=== PATIENT | male | born 1980 | race Caucasian/White ===

== ENCOUNTER 2024-09-25 20:03 | Emergency (ER) | payer MEDICARE ==
--- NOTE | 2024-09-25 20:42 | ED ---
Seizure HPI - General Chief Complaint: Seizure Stated Complaint: seizure Time Seen by Provider: 09/25/24 20:13 Source: patient, RN notes reviewed Mode of arrival: wheelchair Limitations: no limitations - History of Present Illness Initial Comments: This is a 44-year-old male who presents to the emergency department for a seizure. Patient states that he had a seizure around noon today. He was by himself when this occurred. He had forgotten to take his morning dose of Keppra, but has otherwise been compliant with his medication. He is currently on Keppra 1000 mg twice daily. He has missed doses before and that has not resulted in a seizure. His last seizure was 1.5 months ago, however prior to that he had not had a seizure in a while. Currently follows with neurology out of [place] and states that he just moved to this area. He did hit his head when he fell and also complains of lower back pain. Not taking any blood thinners. States that he had surgery to his lower back in June of last year. MD Complaint: seizure - Related Data Previous Rx's Medication Instructions Recorded Cyclobenzaprine [Flexeril] 10 mg PO TID PRN #30 tab 09/25/24 Ibuprofen [Motrin] 800 mg PO Q8H PRN #30 tab 09/25/24 levETIRAcetam 1,000 mg PO Q12HR #60 tab 09/25/24 Allergies Allergy/AdvReac Type Severity Reaction Status Date / Time No Known Allergies Allergy Verified 09/25/24 20:12 Review of Systems ROS Statement: Those systems with pertinent positive or pertinent negative responses have been documented in the HPI. ROS Other: All systems not noted in ROS Statement are negative. Past Medical History Past Medical History: Hypertension, Seizure Disorder History of Any Multi-Drug Resistant Organisms: None Reported Past Surgical History: Back Surgery Past Psychological History: Anxiety, Depression Smoking Status: Current every day smoker Past Alcohol Use History: None Reported Past Drug Use History: Marijuana General Exam Limitations: no limitations General appearance: alert, in no apparent distress Head exam: Present: atraumatic, normocephalic, normal inspection Eye exam: Present: normal appearance, PERRL, EOMI. Absent: scleral icterus, conjunctival injection, periorbital swelling Respiratory exam: Present: normal lung sounds bilaterally. Absent: respiratory distress, wheezes, rales, rhonchi, stridor Cardiovascular Exam: Present: regular rate, normal rhythm, normal heart sounds. Absent: systolic murmur, diastolic murmur, rubs, gallop, clicks Neurological exam: Present: alert, oriented X3, CN II-XII intact Psychiatric exam: Present: normal affect, normal mood Skin exam: Present: warm, dry, intact, normal color. Absent: rash Course Vital Signs 09/25/24 09/25/24 20:07 22:44 Temperature 97.6 F 98.3 F Pulse Rate 82 72 Respiratory 18 17 Rate Blood Pressure 133/81 130/94 O2 Sat by Pulse 98 96 Oximetry Medical Decision Making - Medical Decision Making This is a 44 year old male who presents to the emergency department for a seizure. Was pt. sent in by a medical professional or institution? @ -No Did you speak to anyone other than the patient for history? @ -No Did you review nursing and triage notes? @ -Yes, and I agree, it is accurate with regards to the patient's symptoms. Were old charts reviewed? @ -No Differential Diagnosis? @ -Differential Seizure: Recurrent seizure disorder, febrile seizure, alcohol withdrawal, stimulants, meningitis, encephalitis, intercranial hemorrhage, intracranial tumor, stroke, eclampsia, thyrotoxicosis, hypocalcemia, hyponatremia, hypernatremia, hypomagnesemia, psychogenic, this is not meant to be an all-inclusive list. EKG interpreted by me (3pts min.)? @ -EKG interpreted by me demonstrating the following: Sinus rhythm. Ventricular rate 71 bpm, ID interval 164 ms, QRS duration 102 ms, QTc 419 ms. X-rays interpreted by me (1pt min.)? @ -Not obtained CT interpreted by me (1pt min.)? @ -Computed tomography scan of the brain and c-spine obtained. My interpretation identifies no evidence of an acute intracranial hemorrhage, skull fracture, or cervical spine fracture. U/S interpreted by me (1pt. min.)? @ -Not obtained What testing was considered but not performed? (CT, X-rays, U/S, labs)? Why? @ -None What meds were considered but not given? Why? @ -None Did you discuss the management of the patient with other professionals? @ -No Did you reconcile home meds? @ -No Was smoking cessation discussed for >3mins.? @ -No Was critical care preformed (if so, how long)? @ -No Were there social determinants of health that impacted care today? How? (Homelessness, low income, unemployed, alcoholism, drug addiction, transportation, low edu. Level, literacy, decrease access to med. care, fdc, rehab)? @ -No Was there de-escalation of care discussed even if they declined? (Discuss DNR or withdrawal of care, Hospice)? @ -No What co-morbidities impacted this encounter? (DM, HTN, Smoking, COPD, CAD, Cancer, CVA, Hep., AIDS, mental health diagnosis, sleep apnea, morbid obesity)? @ -Seizure disorder Was patient admitted / discharged? @ -Discharged. Seizure precautions were initiated on arrival. Lab work demonstrates mildly elevated LFTs and was otherwise relatively unremarkable. However, we have no prior values for comparison. Urinalysis negative for signs of infection. Urine drug screen only positive for marijuana. Alcohol level neg ative. He was given a liter bolus of IV fluids and a loading dose of 1g of Keppra. Given the head injury and back injury with recent back surgery, CT scan of the brain/C-spine and lumbar spine were obtained. CT scan of the brain/C- spine revealed no acute process. CT scan of the lumbar spine revealed a large broad-based L5-S1 disc herniation. Findings reviewed with the patient and discussed that he needs to follow-up with his neurologist regarding these lumbar spine findings, especially given his surgical history. Pain was managed in the emergency department and he was monitored until he was back to baseline. Refill on Keppra provided. He was also given a prescription for ibuprofen and Flexeril for further management of his back pain. Patient discharged home in stable condition. Case discussed with ED attending Dr. Baldwin. Return precautions reviewed in depth, the patient is instructed to return to the emergency department with any new, worsening, or concerning symptoms. Patient verbalized understanding. Undiagnosed new problem with uncertain prognosis? @ -None Drug Therapy requiring intensive monitoring for toxicity (Heparin, Nitro, Insulin, Cardizem)? @ -None Were any procedures done? @ -None Diagnosis/symptom? @ -Generalized seizure, lumbar disc herniation Acute, or Chronic, or Acute on Chronic? @ -Acute Uncomplicated (without systemic symptoms) or Complicated (systemic symptoms)? @ -Uncomplicated Side effects of treatment? @ -None Exacerbation, Progression, or Severe Exacerbation] @ -Not applicable Poses a threat to life or bodily function? @ -Unlikely - Lab Data Result diagrams: 09/25/24 20:42 09/25/24 20:42 Lab Results 09/25/24 09/25/24 09/25/24 Range/Units 20:35 20:42 20:42 WBC 8.6 (3.8-10.6) k/uL RBC 4.43 (4.30-5.90) m/uL Hgb 14.7 (13.0-17.5) gm/dL Hct 44.1 (39.0-53.0) % MCV 99.4 (80.0-100.0) fL MCH 33.2 (25.0-35.0) pg MCHC 33.4 (31.0-37.0) g/dL RDW 11.9 (11.5-15.5) % Plt Count 144 L (150-450) k/uL MPV 8.4 Neutrophils % 64 % Lymphocytes % 23 % Monocytes % 6 % Eosinophils % 5 % Basophils % 1 % Neutrophils # 5.5 (1.3-7.7) k/uL Lymphocytes # 2.0 (1.0-4.8) k/uL Monocytes # 0.5 (0-1.0) k/uL Eosinophils # 0.5 (0-0.7) k/uL Basophils # 0.1 (0-0.2) k/uL Sodium 134 L (137-145) mmol/L Potassium 4.1 (3.5-5.1) mmol/L Chloride 97 L (98-107) mmol/L Carbon Dioxide 29 (22-30) mmol/L Anion Gap 8 mmol/L BUN 12 (9-20) mg/dL Creatinine 0.66 (0.66-1.25) mg/dL Est GFR (CKD-EPI)AfAm >90 (>60 ml/min/1.73 sqM) Est GFR (CKD-EPI)NonAf >90 (>60 ml/min/1.73 sqM) Glucose 75 (74-99) mg/dL Calcium 10.1 (8.4-10.2) mg/dL Magnesium 1.7 (1.6-2.3) mg/dL Total Bilirubin 1.4 H (0.2-1.3) mg/dL AST 69 H (17-59) U/L ALT 52 H (4-49) U/L Alkaline Phosphatase 151 H (38-126) U/L Total Protein 8.5 H (6.3-8.2) g/dL Albumin 5.0 (3.5-5.0) g/dL Urine Color Yellow Urine Appearance Clear (Clear) Urine pH 6.5 (5.0-8.0) Ur Specific [place] 1.018 (1.001-1.035) Urine Protein Negative (Negative) Urine Glucose (UA) Negative (Negative) Urine Ketones Negative (Negative) Urine Blood Negative (Negative) Urine Nitrite Negative (Negative) Urine Bilirubin Negative (Negative) Urine Urobilinogen 3.0 (<2.0) mg/dL Ur Leukocyte Esterase Trace H (Negative) Urine RBC <1 (0-5) /hpf Urine WBC 1 (0-5) /hpf Hyaline Casts 1 (0-2) /lpf Urine Mucus Rare H (None) /hpf Urine Opiates Screen Not Detected (NotDetected) Ur Oxycodone Screen Not Detected (NotDetected) Urine Methadone Screen Not Detected (NotDetected) Ur Barbiturates Screen Not Detected (NotDetected) U Tricyclic Antidepress Not Detected (NotDetected) Ur Phencyclidine Scrn Not Detected (NotDetected) Ur Amphetamines Screen Not Detected (NotDetected) U Methamphetamines Scrn Not Detected (NotDetected) U Benzodiazepines Scrn Not Detected (NotDetected) Urine Cocaine Screen Not Detected (NotDetected) U Marijuana (THC) Screen Detected H (NotDetected) Serum Alcohol <10 mg/dL - Radiology Data Radiology results: report reviewed, image reviewed Disposition Clinical Impression: Generalized seizure, Lumbar disc herniation Disposition: HOME SELF-CARE Instructions (If sedation given, give patient instructions): Seizure/Epilepsy Discharge Instructions & Follow-Up, Lumbar Disc Herniation (ED) Additional Instructions: Return to the emergency department with any new, worsening, or concerning s ymptoms. Alternate with ibuprofen and Tylenol as needed for pain relief. You can take the Flexeril up to 3 times daily for pain control. Make sure you take your Keppra twice daily as prescribed. Follow-up with your neurologist or you can also try to become established with one of the local neurology providers listed below. Prescriptions: Cyclobenzaprine [Flexeril] 10 mg PO TID PRN #30 tab PRN Reason: Pain levETIRAcetam 1,000 mg PO Q12HR #60 tab Ibuprofen [Motrin] 800 mg PO Q8H PRN #30 tab PRN Reason: Pain Is patient prescribed a controlled substance at d/c from ED?: No Referrals: Saul Lafleur MD [Primary Care Provider] - 1-2 days Poly Sellers MD [STAFF PHYSICIAN] - 1-2 days Paola Acevedo MD [Medical Doctor] - 1-2 days Time of Disposition: 22:26
[2024-09-25 20:49] LABS: Basophils # (A) 0.1 k/uL (0-0.2); Basophils % (A) 1 %; Eosinophils # (A) 0.5 k/uL (0-0.7); Eosinophils % (A) 5 %; HCT 44.1 % (39.0-53.0); HGB 14.7 gm/dL (13.0-17.5); Lymphocytes % (A) 23 %; MCH 33.2 pg (25.0-35.0); MCHC 33.4 g/dL (31.0-37.0); MCV 99.4 fL (80.0-100.0); Mean Platelet Volume 8.4; Monocytes # (A) 0.5 k/uL (0-1.0); Monocytes % (A) 6 %; Neutrophils # (A) 5.5 k/uL (1.3-7.7); Neutrophils % (A) 64 %; Platelet Count 144 k/uL (150-450); RBC 4.43 m/uL (4.30-5.90); RDW 11.9 % (11.5-15.5); WBC 8.6 k/uL (3.8-10.6)
[2024-09-25] MEDS: levETIRAcetam IV 500 MG/5 ML VIAL IVP STA (20:57)
[2024-09-25 21:00] LABS: ALT 52 U/L (4-49); AST 69 U/L (17-59); African American GFR (CKD) >90 (>60 ml/min/1.73 sqM); Alcohol <10 mg/dL; Alkaline Phosphatase 151 U/L (38-126); Anion Gap 8 mmol/L; Blood Urea Nitrogen 12 mg/dL (9-20); Calcium 10.1 mg/dL (8.4-10.2); Carbon Dioxide 29 mmol/L (22-30); Chloride 97 mmol/L (98-107); Glucose 75 mg/dL (74-99); Magnesium 1.7 mg/dL (1.6-2.3); Non-African American GFR(CKD) >90 (>60 ml/min/1.73 sqM); Potassium 4.1 mmol/L (3.5-5.1); Sodium 134 mmol/L (137-145); Total Bilirubin 1.4 mg/dL (0.2-1.3); Total Protein 8.5 g/dL (6.3-8.2)
[2024-09-25] MEDS: SODIUM CHLORIDE 0.9% 1,000 ML IV STA (21:03)
[2024-09-25 21:06] LABS: Appearance,Urine Clear (Clear); Bilirubin,Urine Negative (Negative); Blood,Urine Negative (Negative); Color,Urine Yellow; Glucose,Urine (UA) Negative (Negative); Hyaline Casts,Urine 1 /lpf (0-2); Ketones,Urine Negative (Negative); Leukocyte Esterase,Urine Trace (Negative); Mucus,Urine Rare /hpf; Nitrite,Urine Negative (Negative); PH, Urine 6.5 (5.0-8.0); Protein,Urine Negative (Negative); RBC,Urine <1 /hpf (0-5); Specific Gravity,Urine 1.018 (1.001-1.035); WBC,Urine 1 /hpf (0-5)
[2024-09-25 21:20] LABS: Amphetamine Screen,Urine Not Detected (NotDetected); Barbiturate Screen,Urine Not Detected (NotDetected); Benzodiazepines Screen,Urine Not Detected (NotDetected); Cocaine Screen,Urine Not Detected (NotDetected); Methadone Screen, Urine Not Detected (NotDetected); Opiate Screen,Urine Not Detected (NotDetected); Oxycodone Screen, Urine Not Detected (NotDetected); Phencyclidine Screen,Urine Not Detected (NotDetected); Tricyclic Antidepressant,Urine Not Detected (NotDetected); Urn Cannabinoid Scrn Detected (NotDetected)
--- NOTE | 2024-09-25 21:32 | CT ---
EXAMINATION TYPE: CT brain cspine wo con DATE OF EXAM: 09/25/2024 9:01 PM COMPARISON: None. CLINICAL INDICATION: Male, 44 years old with history of Fall, head injury, Fall, lower back pain, rec ent surgery., pain TECHNIQUE: CT of the brain is performed utilizing 3 mm thick sections through the posterior fossa and 3 mm thick sections through the remaining calvarium. Study is performed within 24 hours of arrival to the hospital. Contrast used: mL of , (none if empty) CT DLP: 1359.8 mGycm, Automated exposure control for dose reduction was used. FINDINGS: No abnormal hyperdensity is present to suggest an acute intracranial hemorrhage. No mass lesion is evident. No acute infarcts are evident. Ventricles and sulci are appropriate for the patient age. Paranasal sinuses and mastoid air cells within the [id number] are clear. IMPRESSIONS: 1. No acute intracranial process. Follow-up MRI can be performed as clinically indicated. CT cervical spine. COMPARISON: None TECHNIQUE: CT of the cervical spine is performed in the axial plane at 2 mm thick sections. Reconstr ucted images in the coronal, and sagittal plane are reviewed on the computer. FINDINGS: No acute fractures are evident. Vertebral body alignment is normal. Disc heights are preserved. Vertebral body heights are preserved. No spinal canal stenosis is evident. No neural foraminal stenosis is evident. IMPRESSION: 1. No acute osseous abnormality cervical spine [facility], Workstation: [facility], 09/25/2024 9:29 PM
[2024-09-25] MEDS: ACETAMINOPHEN TAB 500 MG TAB PO STA (21:53)
[2024-09-25] MEDS: KETOROLAC 15 MG/ML 1 ML VIAL IVP STA (21:54)
[2024-09-25] MEDS: ORPHENADRINE 30 MG/ML 2 ML VIAL IVP STA (21:55)
--- NOTE | 2024-09-25 22:02 | CT ---
EXAMINATION TYPE: CT lumbar spine wo con DATE OF EXAM: 09/25/2024 9:00 PM COMPARISON: None. CLINICAL INDICATION: Male, 44 years old with history of Fall, lower back pain, recent surgery, Fall, lower back pain, recent surgery., pain TECHNIQUE: CT of the lumbar spine is performed on a spiral scan at 3 mm thick sections. Reconstructed images are performed in the coronal and sagittal planes. Contrast used: mL of , (none if empty) Oral contrast used: (none if empty) CT DLP: 2057.9 mGycm, Automated exposure control for dose reduction was used. FINDINGS: There may be a transitional vertebra present. T12 may be lumbarized. There appears to be an S1-2 disc level present. Plain film correlation would be recommended prior to any surgical intervent ion. T12-L1: No focal disc herniation or significant disc bulge is evident. No spinal canal stenosis or neural foraminal stenosis is present. L1-L2: No focal disc herniation or significant disc bulge is evident. No spinal canal stenosis or n eural foraminal stenosis is present L2-L3: No focal disc herniation or significant disc bulge is evident. No spinal canal stenosis or n eural foraminal stenosis is present L3-L4: No focal disc herniation or significant disc bulge is evident. Minimal disc bulge with anterio r thecal sac flattening may be present. No spinal canal stenosis or neural foraminal stenosis is pre sent L4-L5: No focal disc herniation or significant disc bulge is evident. Minimal disc bulge with anterio r thecal sac flattening may be present. No spinal canal stenosis or neural foraminal stenosis is pre sent L5-S1: At the second lowest disc level which appears to be the L5-S1 level there is broadbase disc he rniation. This is displacing the right S1 nerve root posteriorly. This has mild anterior thecal sac c ontact. Minimal contact without displacement of the left S1 nerve root may be present. Moderate bilat eral foraminal stenosis is present. Appears to be lumbarization of S1 on the left Vertebral alignment appears normal. IMPRESSION: 1. Transitional vertebra likely present. Plain film correlation recommended prior to any surgical int ervention. 2. Large broadbase L5-S1 disc herniation displacing the right S1 nerve root posteriorly and has minim al contact with the left S1 nerve root. Some mild anterior thecal sac compression is present. [facility], , 09/25/2024 9:59 PM
[2024-09-25] MEDS: ACET/COD 300 MG/30 MG STARTER PACK 6 TAB BTL PO STA (22:40)
[2024-09-25] MEDS: CYCLOBENZAPRINE 10MG STARTER 3 TAB BTL PO STA (22:40)
[2024-09-25] MEDS: MORPHINE SULFATE 4 MG/ML SYRINGE IVP STA (22:41)
[2024-09-25 22:51] VITALS: BP 130/94; PULSE 72; RESP 17; TEMP 98.3
== END 2024-09-25 22:51 | disposition home or self-care (01) ==
LOC: EC 20:03
DX: G40.409 Other generalized epilepsy and epileptic syndromes, not intractable, without status epilepticus (principal); M51.26 Other intervertebral disc displacement, lumbar region; F17.200 Nicotine dependence, unspecified, uncomplicated
CPT/HCPCS: 36415; 93005; 80053; 80177; 83735; 85025; 81001; 80306; 72125; 72131; 70450; 99284; 96374; 96375 ×2; 96361; G0480; J2270; J2360; J1953; J1885; 80320